=== PATIENT | female | born 1960 | race Caucasian/White ===

== ENCOUNTER 2017-08-14 13:23 | Emergency (ER) | payer BC ==
[2016-12-07 10:53] VITALS: Wt 81.6 kg
[~2017-08-14 13:23] MED LIST: ASPI-1471 PO; CA C1TAB85 PO; CALC200T2 PO; CIP500 PO; CIPR-326 PO; CLAR-1 PO; DIC10 PO; DOCU-416 PO; FAM20 PO; FAMO20TA9 PO; HYDR-3083 PO; IBU600 PO; IRON1TAB4 PO; KETO-58 PO; LEVO50TA86 PO; LEVO75TA73 PO; LOR5/325 PO; METR-160 PO; NAP250 PO; OXYC1TAB54 PO; PANT20TA27 PO; PANT40TA65 PO; PHENA200 PO; SIMV-42 PO; SIMV-54 PO; SOLI10TA8 PO; SOLI5TAB PO; SUCR1TAB51 PO
[2017-08-14] MEDS ORDERED: CHOL10005 PO (13:36)
[2017-08-14] MEDS ORDERED: CYAN25005 SL (13:37)
[2017-08-14] MEDS ORDERED: ASPIRIN 81 MG CHEW PO ONE (14:00)
--- NOTE | 2017-08-14 14:01 | EKG ---
FACILITY: [facility] - [place] PATIENT NAME: REBECA DELATORRE : [id number] MR: [id number] V: [id number] EXAM DATE: ORDERING PHYSICIAN: JENA LESTER TECHNOLOGIST: ALVAREZ Toth Reason : CHEST PAIN Blood Pressure : / mmHG Vent. Rate : 057 BPM Atrial Rate : 057 BPM P-R Int : 142 ms QRS Dur : 114 ms QT Int : 400 ms P-R-T Axes : 028 057 057 degrees QTc Int : 389 ms Sinus bradycardia Otherwise normal ECG No previous ECGs available Confirmed by RADHA CALVO ([id number]) on 08/15/2017 2:17:09 PM Referred By: Confirmed By:RADHA CALVO
--- NOTE | 2017-08-14 14:07 | ER Report ---
History and Physical Time Seen By MD: 13:30 Hx. of Stated Complaint: PT STARTED HAVING CHEST PAIN YESTERDAY. TODAY SHE HAD REALLY BAD PAIN IN LEFT ARM THAT RADIATED UP TO NECK. HPI/ROS CHIEF COMPLAINT: Left arm pain HISTORY OF PRESENT ILLNESS: 57-year-old female who yesterday in the evening started feeling some palpitations mild upper chest discomfort and some left arm discomfort. Patient states that the chest discomfort less only a few moments with the left arm discomfort was residual and continued for quite some time eloped the next morning still having the same discomfort in her left upper extremity worse with some motion and she felt mildly short of breath. Patient states on arrival to the emergency department she is result of those symptoms the still has some little bit of left arm pain. Patient also describing some left lateral neck discomfort as well. Patient denies any chest pain at this time nausea vomiting diarrhea fever chills. Patient had a stress test done in November of this past year which was completely normal. Patient was in the car today stop for a few minutes felt some stress in a motion and then drove herself to the emergency department patient on arrival here has no additional complaints REVIEW OF SYSTEMS: Respiratory: No cough, no dyspnea. Cardiovascular: Chest pain resolved no palpitation Gastrointestinal: No vomiting, no abdominal pain. Musculoskeletal: Left arm discomfort Remainder of the 14 system rev: Yes Allergies: Coded Allergies: Penicillins (Verified Allergy, Intermediate, hives, 08/14/17) Home Meds Active Scripts Pantoprazole Sodium (PANTOPRAZOLE SODIUM) 20 Mg Tablet.dr, 1 TAB PO DAILY, #60 TAB 6 Refills Take first thing every morning and avoid eating for at least 30 minutes. Prov:RADHA VERA MD 07/09/17 Iron,Carbonyl/Ascorbic Acid (IRON 100-VITAMIN C TABLET) 1 Each Tablet, 1 EACH PO TID, #120 TAB 1 Refill Prov:RADHA VERA MD 01/01/17 Reported Medications Cyanocobalamin (Vitamin B-12) (B-12) 2,500 Mcg Tab.subl, 2500 MCG SL QDAY 08/14/17 Cholecalciferol (Vitamin D3) (VITAMIN D3) 1,000 Unit Tablet, 1000 UNIT PO QDAY, TAB 08/14/17 Simvastatin (SIMVASTATIN) 40 Mg Tablet, 40 MG PO HS, TAB 10/04/15 Solifenacin Succinate (VESICARE) 10 Mg Tablet, 10 MG PO DAILY 10/04/15 Levothyroxine Sodium (LEVOTHYROXINE SODIUM) 50 Mcg Tablet, 50 MCG PO QDAY, TAB 10/04/15 Reviewed Nurses Notes: Yes Old Medical Records Reviewed: Yes Hx Smoking: No Smoking Status: Never Smoker Hx Substance Use Disorder: No Hx Alcohol Use: No Constitutional Vital Sign - Last 24 Hours 08/14/17 08/14/17 08/14/17 08/14/17 13:30 13:33 13:38 13:53 Temp 98.5 Pulse 70 70 Resp 14 24 41 B/P (MAP) 149/87 (107) 149/87 Pulse Ox 98 96 O2 Delivery Room Air 08/14/17 08/14/17 08/14/17 14:38 14:53 15:08 Pulse 84 79 76 Resp 21 12 13 Pulse Ox 96 95 98 Physical Exam General Appearance: The patient is alert, has no immediate need for airway protection and no current signs of toxicity. [ ] Eyes: Pupils equal and round no injection. Respiratory: Chest is non tender, lungs are clear to auscultation. Cardiac: regular rate and rhythm [ ] Gastrointestinal: Abdomen is soft and non tender, no masses, bowel sounds normal. Musculoskeletal: Neck: Neck is supple and non tender. Extremities have full range of motion and are non tender. Skin: No rashes or lesions. [ ] DIFFERENTIAL DIAGNOSIS: After history and physical exam differential diagnosis was considered for myocardial infarction pulmonary emboli aortic dissection Musca skeletal pain cervical radiculopathy Medical Decision Making Data Points Result Diagram: 08/14/17 1400 08/14/17 1400 Laboratory Hematology Test 08/14/17 14:00 Red Blood Count 4.16 M/uL (4.17-5.56) Mean Corpuscular Volume 92.1 fL (80.0-96.0) Mean Corpuscular Hemoglobin 32.0 pg (26.0-33.0) Mean Corpuscular Hemoglobin Concent 34.7 g/dL (32.0-36.0) Red Cell Distribution Width 13.2 % (11.5-14.5) Mean Platelet Volume 7.5 fL (7.2-11.1) Neutrophils (%) (Auto) 45.5 % (39.4-72.5) Lymphocytes (%) (Auto) 47.3 % (17.6-49.6) Monocytes (%) (Auto) 5.8 % (4.1-12.4) Eosinophils (%) (Auto) 0.8 % (0.4-6.7) Basophils (%) (Auto) 0.6 % (0.3-1.4) Nucleated RBC Relative Count (auto) 0.0 /100WBC Neutrophils # (Auto) 2.5 K/uL (2.0-7.4) Lymphocytes # (Auto) 2.6 K/uL (1.3-3.6) Monocytes # (Auto) 0.3 K/uL (0.3-1.0) Eosinophils # (Auto) 0.0 K/uL (0.0-0.5) Basophils # (Auto) 0.0 K/uL (0.0-0.1) Nucleated RBC Absolute Count (auto) 0.00 K/uL D-Dimer Quantitative (PE/DVT) < 0.27 ug/ml (0-0.50) Sodium Level 140 mmol/L (137-145) Potassium Level 4.1 mmol/L (3.5-5.0) Chloride Level 104 mmol/L (98-107) Carbon Dioxide Level 26 mmol/L (22-31) Blood Urea Nitrogen 10 mg/dl (7-18) Creatinine 0.60 mg/dl (0.52-1.04) Glomerular Filtration Rate Calc > 60.0 Random Glucose 125 mg/dl (75-110) Calcium Level 9.4 mg/dl (8.4-10.2) Total Bilirubin 0.4 mg/dl (0.2-1.3) Aspartate Amino Transf (AST/SGOT) 18 U/L (0-35) Alanine Aminotransferase (ALT/SGPT) 23 U/L (0-56) Alkaline Phosphatase 80 U/L (0-126) Troponin I < 0.012 ng/ml Total Protein 7.7 gm/dl (6.3-8.2) Albumin 4.1 g/dl (3.5-5.0) Chemistry Test 08/14/17 14:00 White Blood Count 5.4 k/uL (4.5-11.0) Red Blood Count 4.16 M/uL (4.17-5.56) Hemoglobin 13.3 g/dL (12.0-16.0) Hematocrit 38.3 % (34.0-47.0) Mean Corpuscular Volume 92.1 fL (80.0-96.0) Mean Corpuscular Hemoglobin 32.0 pg (26.0-33.0) Mean Corpuscular Hemoglobin Concent 34.7 g/dL (32.0-36.0) Red Cell Distribution Width 13.2 % (11.5-14.5) Platelet Count 234 K/uL (150-450) Mean Platelet Volume 7.5 fL (7.2-11.1) Neutrophils (%) (Auto) 45.5 % (39.4-72.5) Lymphocytes (%) (Auto) 47.3 % (17.6-49.6) Monocytes (%) (Auto) 5.8 % (4.1-12.4) Eosinophils (%) (Auto) 0.8 % (0.4-6.7) Basophils (%) (Auto) 0.6 % (0.3-1.4) Nucleated RBC Relative Count (auto) 0.0 /100WBC Neutrophils # (Auto) 2.5 K/uL (2.0-7.4) Lymphocytes # (Auto) 2.6 K/uL (1.3-3.6) Monocytes # (Auto) 0.3 K/uL (0.3-1.0) Eosinophils # (Auto) 0.0 K/uL (0.0-0.5) Basophils # (Auto) 0.0 K/uL (0.0-0.1) Nucleated RBC Absolute Count (auto) 0.00 K/uL D-Dimer Quantitative (PE/DVT) < 0.27 ug/ml (0-0.50) Glomerular Filtration Rate Calc > 60.0 Calcium Level 9.4 mg/dl (8.4-10.2) Total Bilirubin 0.4 mg/dl (0.2-1.3) Aspartate Amino Transf (AST/SGOT) 18 U/L (0-35) Alanine Aminotransferase (ALT/SGPT) 23 U/L (0-56) Alkaline Phosphatase 80 U/L (0-126) Troponin I < 0.012 ng/ml Total Protein 7.7 gm/dl (6.3-8.2) Albumin 4.1 g/dl (3.5-5.0) Coagulation Test 08/14/17 14:00 D-Dimer Quantitative (PE/DVT) < 0.27 ug/ml ED Course/Re-evaluation ED Course ED clinical course medical decision making 57-year-old female with left arm pain concerning for this being cardiac in etiology x-ray of the chest and C- spine performed including cardiac markers all of which were negative EKG showed no acute findings troponins were negative as well as d-dimer. X-ray of the C- spine however did show degenerative changes C5-6 consistent with radiculopathic changes which is currently what I believe for process to be was advised to take ibuprofen and rest ice compresses necessary and follow-up with primary care diagnosis cervical radiculopathy Decision to Disposition Date: Aug 14, 2017 Decision to Disposition Time: 15:25 Depart Departure Latest Vital Signs Vital Signs Date Time Temp Pulse Resp B/P (MAP) Pulse Ox O2 Delivery O2 Flow Rate FiO2 08/14/17 15:08 76 13 98 08/14/17 13:33 98.5 149/87 Room Air Impression: Primary Impression: Cervical radiculopathy Additional Impression: Cervical radiculopathy at C5 Condition: Improved Disposition: HOME OR SELF-CARE Referrals: MAGDALENA NGUYEN (PCP) 5 Days Patient Instructions: Cervical Radiculopathy (ED) Problem Qualifiers JENA LESTER MD Aug 14, 2017 14:07
[2017-08-14 14:12] LABS: PLATELET COUNT, AUTOMATED 234 K/uL (150-450)
--- NOTE | 2017-08-14 14:49 | RADIOLOGY IMAGING REPORT ---
FACILITY: [facility] - [place] PATIENT NAME: Esther Whitmore : 1960 MR: [id number] V: [id number] EXAM DATE: ORDERING PHYSICIAN: JENA LESTER TECHNOLOG[place]: [place] [facility] [place] Whit[place] : 1960 Visit/Account:[id number] Date of Sevice: 08/14/2017 2 VIEWS CHEST INDICATION: Chest pain. Radiating to left arm and neck for 2 days. COMPARISON: 07/05/2015. FINDINGS: Cardiomediastinal silhouette and pulmonary vessels within normal limits. There is no focal infiltrate or lobar consolidation. There is no pneumothorax or pleural effusion. No nodules. Upper abdomen is unremarkable. Small eventration of the left hemidiaphragm. No acute bony abnormality . IMPRESSION: 1. No acute cardiopulmonary process. Report Dictated By: Mic Henderson at 08/14/2017 2:43 PM Report E-Signed By: Mic Henderson at 08/14/2017 2:44 PM WSN:[id number]
--- NOTE | 2017-08-14 15:14 | RADIOLOGY IMAGING REPORT ---
FACILITY: [facility] - [place] PATIENT NAME: Esther Whitmore : 1960 MR: [id number] V: [id number] EXAM DATE: ORDERING PHYSICIAN: JENA LESTER TECHNOLOGIST: [place] [facility] [place]: Esther Whitmore : 1960 Visit/Account:[id number] Date of Sevice: 08/14/2017 EXAMINATION: CERVICAL SPINE 2 OR 3 VIEW HISTORY: Chest pain with shooting left arm and neck pain for 2 days. COMPARISON: None. FINDINGS: AP, open-mouth odontoid, and lateral views of the cervical spine are obtained. Bones: Cervical spine is adequately visualized through the cervicothoracic junction. No acute fractu re or dislocation. Disc spaces: Slight disc space narrowing at C4-5 with small endplate osteophytes. Posterior elements: Negative. Alignment: Normal. Hardware: None. Soft tissues: Negative. Visualized lung apices: Negative. IMPRESSION: Mild disc degenerative changes at C4-5. Report Dictated By: Kenny Brewer MD at 08/14/2017 3:06 PM Report E-Signed By: Kenny Brewer MD at 08/14/2017 3:10 PM WSN:[id number]
[2017-08-14 15:31] VITALS: BP 103/66
== END 2017-08-14 15:37 | disposition home or self-care (01) ==
LOC: ER 13:36
DX: M54.12 Radiculopathy, cervical region (principal)
CPT/HCPCS: 71046; 72040; 82040; 82247; 82310; 82374; 82435; 82565; 82947; 84075; 84132; 84155; 84295; 84450; 84460; 84484; 84520; 85025; 85379; 93005; 99284

== ENCOUNTER 2018-07-04 16:45 | Outpatient (RCR) | payer BC ==
[2016-12-07 10:53] VITALS: BMI 30.4
[~2018-07-04 16:45] MED LIST changes: +CHOL10005 PO; +CYAN25005 SL; -METR-160 PO; +METR500T15 PO
[2018-07-04 17:01] LABS: PLATELET COUNT, AUTOMATED 278 K/uL (150-450)
== END 2018-07-19 ==
LOC: EDSTATUS 16:45 → LAB 16:45
PROVIDERS: ATTEND Nurse Practitioner Family
DX: R10.9 Unspecified abdominal pain (principal)
CPT/HCPCS: 36415; 82040; 82247; 82310; 82374; 82435; 82565; 82947; 84075; 84132; 84155; 84295; 84450; 84460; 84520; 85025

== ENCOUNTER → 2018-07-07 | Outpatient (CLI) | payer BC ==
[2016-12-07 10:53] VITALS: BMI 30.4
--- NOTE | 2018-07-07 15:22 | RADIOLOGY IMAGING REPORT ---
[place] [facility] [place] Esther Whitmore : 1960 MR: [id number] V: [id number] EXAM DATE: ORDERING PHYSICIAN: LORRI GURROLA TECHNOLOGIST: Location: [facility] Patient: sEther Whitmore : 1960 Visit/Account:[id number] Date of Sevice: 07/07/2018 Limited abdominal ultrasound of the right upper quadrant Indication: Right flank pain , Comparison: None available Findings Liver is normal in size, contour, and echotexture and measures 15.9 cm in length. There is normal hep atopedal portal venous flow. Gallbladder wall thickness is 2.0 mm with no evidence of shadowing stone or sludge within the gallbla dder lumen. Positive sonographic Parikh's sign reported by the technologist. Common duct measures 2.7 mm in maximum diameter with no evidence of shadowing stone. The head and proximal body of the pancreas is unremarkable. The distal body and tail is obscured by o verlying bowel gas. Abdominal aorta and IVC are patent and unremarkable. The right kidney is normal in size, contour, and echotexture and measures 11.3 cm in length. IMPRESSION: 1. Positive sonographic Parikh sign but no evidence of stones, wall thickening or pericholecystic fl uid. Acute acalculous cholecystitis is within the differential. If clinically indicated, recommend HIDA scan for further evaluation. 2. The remainder of the right upper quadrant ultrasound is within normal limits Report Dictated By: Tello Ramirez at 07/07/2018 3:14 PM Report E-Signed By: Tello Ramirez at 07/07/2018 3:17 PM WSN:[email or web address]
== END ==
LOC: US 06:55
PROVIDERS: ATTEND Nurse Practitioner Family
DX: K81.9 Cholecystitis, unspecified (principal); R19.8 Other specified symptoms and signs involving the digestive system and abdomen
CPT/HCPCS: 76705